=== PATIENT | male | born 1950 | race Two or more races ===

== ENCOUNTER 2019-05-24 13:09 | Outpatient (CLI) | payer OTHER ==
[~2019-05-24] VITALS: Ht 152.4 cm; Wt 69.9 kg
== END 2019-05-24 14:44 | disposition home or self-care (01) ==
LOC: OFIC 805 13:09
DX: M26.69 Other specified disorders of temporomandibular joint (principal)

== ENCOUNTER 2023-08-08 10:49 | Outpatient (CLI) | payer OTHER | END 2023-08-08 11:00 | disposition home or self-care (01) | LOC: TOM 10:49 | DX: K56.600 Partial intestinal obstruction, unspecified as to cause (principal) ==